=== PATIENT | female | born 1985 | race Hispanic/Latino ===

== ENCOUNTER 2018-03-03 07:40 | Emergency (ER) | payer MEDICAID ==
[~2018-03-03 07:40] MED LIST: Sodium Chloride Irrig Solution 250 ML BOT ONE
[2018-03-03] MEDS ORDERED: Lidocaine 2% w/Epinephrine 1:200K 20 ML VIAL ONE (08:34)
[2018-03-03] MEDS ORDERED: Triple Antibiotic Oint 1 GM Packet ONE (09:59)
[2018-03-03] MEDS ORDERED: Cephalexin 500 MG CAP ONE (09:59)
[2018-03-03] MEDS ORDERED: Naproxen 500 MG TAB ONE (09:59)
[2018-03-03] MEDS ORDERED: HYDROcodone/Acetaminophen 10/325 mg Tablet ONE (09:59)
== END 2018-03-03 10:10 | disposition home or self-care (01) ==
LOC: MADERS 07:40
DX: S61.211A Laceration without foreign body of left index finger without damage to nail, initial encounter (principal); W26.8XXA Contact with other sharp object(s), not elsewhere classified, initial encounter
CPT/HCPCS: 12001; J2001